=== PATIENT | female | born 1995 ===

== ENCOUNTER 2020-11-25 18:38 | Emergency (ER) | payer BC, SELFPAY ==
[2020-11-25 18:53] VITALS: BP 134/82; PULSE 73; RESP 18; TEMP 36.4; O2SAT 97
--- NOTE | 2020-11-25 18:59 | ED.EAR ---
HPI - Ear Problem General Chief complaint: Ear Stated complaint: qtip stuck in ear Source: patient Mode of arrival: ambulatory Limitations: no limitations History of Present Illness HPI Narrative: Patient is a 25-year-old female who presents complaining of possible foreign body in left ear. Patient reports she believes she has part of a cotton tip from a Q-tip stuck in her left ear. Patient does report flushing at home. She denies pain at this time. She denies foreign body sensation. Complaint: foreign body Location: left ear Related Data Home Medications Medication Instructions Recorded Confirmed No Home Medications 11/25/20 11/25/20 Allergies Allergy/AdvReac Type Severity Reaction Status Date / Time No Known Allergies Allergy Verified 11/25/20 19:02 Review of Systems Review of Systems: Narrative: CONSTITUTIONAL: Denies fever, chills, or sweats. EYES: Denies visual changes, redness, or discharge. ENT: Denies rhinorrhea, congestion, sore throat. Reports possible foreign body in left ear. CARDIOVASCULAR: Denies chest pain, palpitations, or edema. RESPIRATORY: Denies cough or dyspnea. GASTROINTESTINAL: Denies abdominal pain, nausea, vomiting, or diarrhea. GENITOURINARY: Denies dysuria or hematuria. SKIN: Denies rash or itching. MUSCULOSKELETAL: Denies back pain, joint pain, or myalgia. NEUROLOGIC: Denies headache, numbness, dizziness, or weakness. PSYCHIATRIC: Denies anxiety or depression. PMFSH Past Medical History Medical History No significant past medical history Surgical History Surgical History No significant past surgical history Family History Family History (Updated 11/25/20 @ 19:01 by AL Farley) Other No significant family history Social History Social History (Updated 11/25/20 @ 19:01 by AL Farley) Smoking status: Current every day smoker Tobacco type: e-cigarettes/vaping Alcohol intake: never Substance use: never Living arrangements: with family Exam Narrative: Exam Narrative: GENERAL: Well-appearing, well-nourished, and in no acute distress. HEAD: Normocephalic, atraumatic. EYES: No redness or drainage. ENT: Mucous membranes pink and moist. TMs normal bilaterally. CHEST: No respiratory distress. HEART: Regular rate and rhythm. No murmur appreciated. Normal peripheral pulses. EXTREMITIES: Normal range of motion. SKIN: Warm, dry, no rash. NEURO: No focal deficits. Alert and oriented x3. Gait steady. PSYCH: Normal affect. No signs of depression or anxiety. Course Vital Signs Vital signs: Vital Signs Temperature 36.4 C 11/25/20 18:53 Pulse Rate 73 11/25/20 18:53 Respiratory Rate 18 11/25/20 18:53 Blood Pressure 134/82 11/25/20 18:53 Pulse Oximetry 97 11/25/20 18:53 Temperature 36.4 C 11/25/20 18:53 Pulse Rate 73 11/25/20 18:53 Respiratory Rate 18 11/25/20 18:53 Blood Pressure 134/82 11/25/20 18:53 Pulse Oximetry 97 11/25/20 18:53 Reviewed-patient is informed that they may have pre-hypertension or hypertension based on a blood pressure reading. I recommend the patient call the primary care provider listed on their discharge instructions or a physician of their choice this week to arrange follow-up for further evaluation of possible pre-hypertension or hypertension. Medical Decision Making MDM Narrative Medical decision making narrative: Patient's left ear visualized, no foreign body noted. Patient's ear flushed with warm water, recheck, no foreign body noted. Patient is stable for discharge to home with outpatient follow-up as needed Differential Diagnosis Differential Diagnosis: Foreign body, otitis media, otitis externa Medical Records Medical records reviewed: Yes I reviewed the patient's medical records. Vital Signs Vital Signs: Vital Signs Temperature 36.4 C 11/25/20 18
== END 2020-11-25 19:14 | disposition home or self-care (01) ==
PROVIDERS: Emergency Provider Nurse Practitioner
DX: T16.2XXA Foreign body in left ear, initial encounter (principal); X58.XXXA Exposure to other specified factors, initial encounter; F17.200 Nicotine dependence, unspecified, uncomplicated
CPT/HCPCS: 99211; G0463